=== PATIENT | male | born 2005 | race Caucasian/White ===

== ENCOUNTER 2023-08-16 19:47 | Observation (INO) | payer OTHER, MEDICAID, SELFPAY ==
[2023-08-16] VITALS (11 sets, daily range): BP systolic 136–147; BP diastolic 78–92; PULSE 86–107; RESP 13–25; TEMP 36.4–36.6; O2SAT 97–100
--- NOTE | 2023-08-16 20:15 | ECG_ITS ---
Measurements Intervals [place] Rate: 84 P: 64 ND: 152 QRS: 101 QRSD: 94 T: 55 QT: 364 QTc: 430 Interpretive Statements SINUS RHYTHM WITH SINUS ARRHYTHMIA MARKED RIGHT AXIS DEVIATION NO PREVIOUS ECG AVAILABLE FOR COMPARISON Electronically Signed On 08-17-2023 12:57:28 CDT by Kapil Mejia M.D.
[2023-08-16 20:39] LABS: Basophils Percent Auto 0.5 % (0.2-1.2); Eosinophils Percent Auto 0.3 % (0-4.4); Hematocrit 46.3 % (42.0-52.0); Hemoglobin 16.2 g/dL (14.0-18.0); Immature Granulocyte Absolute 0.03 K/mm3 (0.00-0.031); Immature Granulocyte Percent A 0.4 % (0-0.5); Lymphocytes Absolute Auto 2.18 K/mm3 (0.9-3.2); Lymphocytes Percent Auto 27.3 % (18.3-44.2); Mean Corpuscular Volume 88.7 fl (80-100); Mean Platelet Volume 9.5 fl (7.4-10.4); Monocytes Absolute Auto 0.5 K/mm3 (0.1-0.6); Monocytes Percent Auto 6.4 % (2.6-8.5); Neutrophils Absolute Auto 5.2 K/mm3 (1.3-6.7); Neutrophils Percent Auto 65.1 % (45.5-73.1); Platelet Count Result 179 k/mm3 (150-375); Red Blood Count 5.22 M/mm3 (4.6-6.20); Red Cell Distribution Width 11.6 % (11.5-14.5)
--- NOTE | 2023-08-16 20:49 | ED.GENADULT ---
HPI - General Adult General Chief complaint: Unspecified Stated complaint: I think i have rhabdo Time Seen by Provider: 08/16/23 20:00 History of Present Illness HPI narrative: Patient a 17-year-old gentleman who presents the emergency department with chief complaint of muscle aches. The patient reports that he started exercising more and reports that he just feels not his normal self and feels as though his muscles are patient states he is concerned that he has rhabdo after reading things on the Internet. Related Data Home Medications Medication Instructions Recorded Confirmed No Home Medications 08/16/23 08/16/23 Allergies Allergy/AdvReac Type Severity Reaction Status Date / Time lisdexamfetamine Allergy Other Verified 08/16/23 20:33 [From Elsie] Review of Systems Review of Systems: A 10 system review of systems was completed on the patient and is negative except for what is stated in the HPI. Nursing and ancillary documentation was reviewed. Exam Narrative: GENERAL: Well-appearing, well-nourished, and in no acute distress. HEAD: Normocephalic, atraumatic. EYES: PERRLA and EOMI. ENT: Nares clear, no rhinorrhea or epistaxis. Mucous membranes moist. NECK: Supple. CHEST: Clear to auscultation. No respiratory distress. HEART: Regular rate and rhythm. No murmur heard. Normal peripheral pulses. ABDOMEN: Soft, nontender, nondistended, normal active bowel sounds. EXTREMITIES: Normal range of motion. No edema. SKIN: Warm, dry, no rash. NEURO: No focal deficits. Alert and oriented x3. PSYCH: Normal mood and affect. Course Vital Signs Vital signs: Vital Signs Temperature 36.4 C 08/16/23 19:49 Pulse Rate 107 H 08/16/23 19:49 Respiratory Rate 20 08/16/23 19:49 Blood Pressure 142/92 H 08/16/23 19:49 Pulse Oximetry 100 08/16/23 19:49 Oxygen Delivery Room Air 08/16/23 19:49 Temperature 36.4 C 08/16/23 19:49 Pulse Rate 93 08/16/23 20:32 Respiratory Rate 14 08/16/23 20:32 Blood Pressure 136/92 H 08/16/23 20:32 Pulse Oximetry 99 08/16/23 20:32 Oxygen Delivery Room Air 08/16/23 20:32 Medical Decision Making MDM Narrative Medical decision making narrative: Differential diagnosis includes dehydration, rhabdomyolysis, electrolyte abnormality Laboratory studies were obtained on the patient which showed normal CBC CMP was within normal limits CK was 7901 urinalysis showed no red blood cells and no blood with a specific gravity of 1.002 Patient received IV fluids patient's magnesium was one-point was given a gram of magnesium potassium was 3.5 the patient was given 40 mEq p.o. potassium. Vital Signs Vital Signs: Vital Signs Temperature 36.4 C 08/16/23 19:49 Pulse Rate 107 H 08/16/23 19:49 Respiratory Rate 20 08/16/23 19:49 Blood Pressure 142/92 H 08/16/23 19:49 Pulse Oximetry 100 08/16/23 19:49 Oxygen Delivery Room Air 08/16/23 19:49 Temperature 36.4 C 08/16/23 19:49 Pulse Rate 93 08/16/23 20:32 Respiratory Rate 14 08/16/23 20:32 Blood Pressure 136/92 H 08/16/23 20:32 Pulse Oximetry 99 08/16/23 20:32 Oxygen Delivery Room Air 08/16/23 20:32 Lab Data 08/16/23 20:30 08/16/23 20:30 Labs: Lab Results 08/16/23 Range/Units 20:30 WBC 8.0 (4.5-10.0) K/mm3 RBC 5.22 (4.6-6.20) M/mm3 Hgb 16.2 (14.0-18.0) g/dL Hct 46.3 (42.0-52.0) % MCV 88.7 (80-100) fl MCH 31.0 (26-34) pg MCHC 35.0 (32-36) g/dl RDW 11.6 (11.5-14.5) % Plt Count 179 (150-375) k/mm3 MPV 9.5 (7.4-10.4) fl Immature Gran % (Auto) 0.4 (0-0.5) % Neut % (Auto) 65.1 (45.5-73.1) % Lymph % (Auto) 27.3 (18.3-44.2) % Tillman % (Auto) 6.4 (2.6-8.5) % Eos % (Auto) 0.3 (0-4.4) % Baso % (Auto) 0.5 (0.2-1.2) % Lymph # (Auto) 2.18 (0.9-3.2) K/mm3 Tillman # (Auto) 0.5 (0.1-0.6) K/mm3 Eos # (Auto) 0.0 (0-0.3) K/mm3 Baso # (Auto) 0.0 (0.0-0.1) K/mm3 Abs Immat Gran (
[2023-08-16 20:54] LABS: Alanine Aminotransferase 47 U/L (6-50); Albumin Level 5.1 g/dL (3.7-5.6); Alkaline Phosphatase 56 U/L (58-237); Anion Gap 10 mmol/L (8-16); Aspartate Amino Transferase 101 U/L (17-59); Bilirubin,Total 1.1 mg/dL (0.2-1.3); Blood Urea Nitrogen 14 mg/dL (8-21); Calcium 9.3 mg/dL (8.9-10.7); Carbon Dioxide 27 mmol/L (22-30); Chloride 103 mmol/L (98-107); Estimated CRCL calculation 112 ml/min; Estimated Glomerular Filt Rate > 60; Glucose 96 mg/dL (65-110); Magnesium 1.9 mg/dL (1.6-2.3); Potassium 3.5 mmol/L (3.4-5.0); Sodium 140 mmol/L (134-143)
[2023-08-16 21:02] LABS: Appearance Urine Clear (Clear); Bacteria Urine None Seen /hpf; Bilirubin Urine Negative (Negative); Blood Urine Trace (Negative); Color Urine Yellow (Yellow); Glucose Urine UA Negative (Negative); Ketones Urine Negative (Negative); Leukocyte Esterase Ur Negative LEU/UL (Negative); Need Manual Microscopic Reviewed; Nitrate Urine Negative (Negative); Non Pathogenic Casts 0-2; Protein Urine Negative (Negative); RBC Urine 0-2 /hpf (0-2); Specific Grav Ur 1.002 (1.001-1.035); Squamous Epithelial Cell Urine None seen /hpf (Few); Urobilinogen Urine 0.2 mg/dL (<2.0); WBC Urine 0-5 /hpf; pH Urine 6.5 (5.0-9.0)
[2023-08-16 21:03] LABS: Add Urine Microscopic? YES
[2023-08-16 21:17] LABS: Creatine Kinase 7901 U/L (55-170)
[2023-08-16] MEDS: POTASSIUM CHLORIDE 20 MEQ PACKET (FOR LIQUID) 40 MEQ PO (21:20)
[2023-08-16] MEDS: MAGNESIUM SULF 1 GM/D5W 100 ML 1 GM/100 ML BAG IVPB (21:21)
[2023-08-16] MEDS: SODIUM CHLORIDE 0.9% IV 1,000 ML 999 ML IV CONT ×2 (21:42)
--- NOTE | 2023-08-16 21:51 | PM.IMHP ---
H&P: HPI History of Present Illness Date/Time: 08/16/23 22:00 Chief Complaint: Muscle aches. Narrative: This is a pleasant 17-year-old male with no significant medical history presented to the emergency department via private vehicle for evaluation of muscle aches. The patient provides the following history. He is use to going to the gym almost daily however has not worked out in over a month due to traveling for work. A couple of days ago he went to the gym and lifted weights. Thereafter he was sore in the chest and upper arm, a little more so than usual. He continues to have muscle cramps in these areas and he has noticed swelling in the biceps. He looked up his symptoms on the Internet and was concerned that perhaps he had rhabdomyolysis so he has been pushing the fluids and despite this his symptoms have continued. He denies fevers, chills, sweats, recent illness, exertional chest pain, shortness of breath, nausea, vomiting, dark urine, and decrease in urine. He denies drug use. No history of rhabdomyolysis. Vital signs were stable on arrival to the ED. Labs were significant for a total CK of 7901 and an AST of 101. He is being admitted in this setting for IV fluid rehydration. Review of Systems Review of Systems: Twelve systems were reviewed and are negative except for as per HPI. [facility] Past Medical History Medical History (Updated 08/16/23 @ 22:42 by June Escalante PA-C) No significant past medical history Surgical History Surgical History (Updated 08/16/23 @ 22:38 by June Escalante PA-C) History of tonsillectomy and adenoidectomy Family History Family History (Updated 08/16/23 @ 22:39 by June Escalante PA-C) Other Family history non-contributory Social History Social History (Updated 08/16/23 @ 22:39 by June Escalante PA-C) Social History: Surrogate medical decision maker: Kristi Yung, mother. Code status: Full code. Smoking status: Never smoker Alcohol use details: Occasional alcohol use. Substance use: never Meds Home Medications and Allergies Home Medications Medication Instructions Recorded Confirmed Type No Home Medications 08/16/23 08/16/23 History Allergies Allergy/AdvReac Type Severity Reaction Status Date / Time lisdexamfetamine Allergy Other Verified 08/16/23 22:42 [From Vyvanse] Vital Signs Vital Signs - 24 hr 08/16/23 19:49 08/16/23 20:32 Temperature 97.6 F Pulse Rate 107 H 93 Respiratory Rate 20 14 Blood Pressure 142/92 H 136/92 H Pulse Oximetry 100 99 Oxygen Delivery Room Air Room Air Exam Narrative: General: Non-toxic appearing male sitting up in bed in no distress. Weight: 72.7 kg. BMI: 24.4. HEENT: PERRL, EOMI. Sclera anicteric. Oral mucosa moist. Oropharynx clear. Neck: Supple. Respiratory: Lungs are clear to auscultation bilaterally. Cardiovascular: Regular rate and rhythm with S1-S2. Gastrointestinal: Abdomen is soft, nontender, and nondistended with positive bowel sounds. Skin: Warm and dry. No rash or lesions on limited exam. Extremities: No cyanosis, clubbing, or edema. Radial and pedal pulses intact. Musculoskeletal: No significant swelling in the arms or legs. Neurological: Alert. Cranial nerves 2-12 are grossly intact. No gross focal deficits to casual conversation. Psychiatric: Pleasant and cooperative with normal mood and affect. Judgment and insight intact. H&P: Results Labs Labs: Short CBC 08/16/23 Range/Units 20:30 WBC 8.0 (4.5-10.0) K/mm3 Hgb 16.2 (14.0-18.0) g/dL Hct 46.3 (42.0-52.0) % Plt Count 179 (150-375) k/mm3 BMP 08/16/23 20:30 Sodium 140 Potassium 3.5 Chloride 103 Carbon Dioxide 27 BUN 14 Creatinine 0.90 Glucose 96 Calcium 9.3 Cardiac Enzymes 08/16/23 Range/Units 20:30 Total Creatine Kinase 7901 H (55-170) U/L Liver Function 08/16/23 Range/Units 20:30 Total Bilirubin 1.1 (0.2-1.3) mg/dL AST 101
--- NOTE | 2023-08-16 22:30 | ADMGEN ---
This patient, Kelton Yung, was admitted to Medical Room 251-01. Patient/family oriented to hospital policies and general routines including ID bracelet, bed and alarms, visiting hours, pain management, procedures, bathroom and other care routines, personal items, smoking policy, room service/diet, and visiting hours. Information on how to activate the Rapid Response Team has been discussed. Patient/Family are encouraged to report perceived risks to care and to ask questions if they do not understand what they are told or what they should do.
[2023-08-16] MEDS: SODIUM CHLORIDE 0.9% IV 1,000 ML 150 ML IV CONT (23:20)
[2023-08-17 03:54] VITALS: BP 112/51; PULSE 71; RESP 16; TEMP 36.3; O2SAT 100
[2023-08-17 05:47] LABS: Alanine Aminotransferase 39 U/L (6-50); Albumin Level 3.6 g/dL (3.7-5.6); Alkaline Phosphatase 41 U/L (58-237); Anion Gap 7 mmol/L (8-16); Aspartate Amino Transferase 81 U/L (17-59); Bilirubin,Total 1.1 mg/dL (0.2-1.3); Blood Urea Nitrogen 11 mg/dL (8-21); Calcium 8.1 mg/dL (8.9-10.7); Carbon Dioxide 22 mmol/L (22-30); Chloride 109 mmol/L (98-107); Creatine Kinase 5396 U/L (55-170); Estimated CRCL calculation 125 ml/min; Estimated Glomerular Filt Rate > 60; Glucose 90 mg/dL (65-110); Magnesium 2.3 mg/dL (1.6-2.3); Potassium 3.7 mmol/L (3.4-5.0); Sodium 138 mmol/L (134-143)
[2023-08-17] MEDS: SODIUM CHLORIDE 0.9% IV 1,000 ML 150 ML IV CONT ×3 (05:50→18:46)
--- NOTE | 2023-08-17 08:34 | PM.IMPN ---
Progress Note: A&P Assessment and Plan (1) Rhabdomyolysis: Code(s): M62.82 - Rhabdomyolysis Status: Acute Assessment and Plan: CK level 7900 on admission, approximately 5400 on morning labs this morning. Patient on IV fluids 150 mL/hr. Urinalysis grossly unremarkable. Repeat CK level this afternoon plan to discharge once below 2000. (2) Elevated aspartate aminotransferase level: Code(s): R74.01 - Elevation of levels of liver transaminase levels Status: Acute Assessment and Plan: initial level of AST 101 down trending to 81 with AM labs. Related to rhabdomyolysis. Plan Repeat CK level this afternoon and plan repeat CMP CK level in the a.m. Patient essentially symptom-free. Time Spent With Patient Time with patient: 15 - 25 minutes Subjective Date/time seen: 08/17/23 08:34 Interval history: This is a 17-year-old male patient who is admitted for elevated creatinine kinase level after he sought care in the emergency department for diffuse muscle aches and pains after starting intense exercise routine. Urinalysis unremarkable. CK level improving with IV fluids. Patient denies any other complaints. Review of Systems Review of Systems: All systems reviewed & are unremarkable except as noted in HPI and below Exam Narrative: General: Non-toxic appearing male sitting up in bed in no distress. Weight: 72.7 kg. BMI: 24.4. HEENT: PERRL, EOMI. Sclera anicteric. Oral mucosa moist. Oropharynx clear. Neck: Supple. Respiratory: Lungs are clear to auscultation bilaterally. Cardiovascular: Regular rate and rhythm with S1-S2. Gastrointestinal: Abdomen is soft, nontender, and nondistended with positive bowel sounds. Skin: Warm and dry. No rash or lesions on limited exam. Extremities: No cyanosis, clubbing, or edema. Radial and pedal pulses intact. Musculoskeletal: No significant swelling in the arms or legs. Neurological: Alert. Cranial nerves 2-12 are grossly intact. No gross focal deficits to casual conversation. Psychiatric: Pleasant and cooperative with normal mood and affect. Judgment and insight intact. Objective Data Vital Signs Vital Signs: Vital Signs - 24 hr 08/16/23 19:49 08/16/23 20:32 08/16/23 20:08 Temperature 36.4 C Pulse Rate 107 H 93 103 H Respiratory Rate 20 14 13 Blood Pressure 142/92 H 136/92 H Pulse Oximetry 100 99 Oxygen Delivery Room Air Room Air 08/16/23 20:28 08/16/23 20:30 08/16/23 20:45 Temperature Pulse Rate 93 98 92 Respiratory Rate 19 25 H 16 Blood Pressure Pulse Oximetry Oxygen Delivery 08/16/23 21:11 08/16/23 21:15 08/16/23 21:30 Temperature Pulse Rate 93 89 86 Respiratory Rate 13 16 16 Blood Pressure Pulse Oximetry Oxygen Delivery 08/16/23 21:50 08/16/23 22:59 08/17/23 03:54 Temperature 36.6 C 36.3 C L Pulse Rate 99 93 71 Respiratory Rate 14 18 16 Blood Pressure 147/78 H 112/51 L Pulse Oximetry 97 100 100 Oxygen Delivery Intake/Output Intake/Output: Intake & Output 08/14/23 08/15/23 08/16/23 08/17/23 23:59 23:59 23:59 23:59 Intake Total 2100 1200 Balance 2100 1200 Meds/Results Medications: Active Medications Generic Name Dose Route Start Last Admin Trade Name Richardsonq PRN Reason Stop Dose Admin Acetaminophen 650 mg 08/16/23 21:57 Acetaminophen 325 Mg Tablet PO Q6H PRN Mild Pain (1-3) or Fever Sodium Chloride 1,000 mls @ 150 mls/hr 08/16/23 21:50 08/17/23 05:50 Normal Saline Iv IV CONT 150 mls/hr .[id number] MARIA Administration Labs Labs: Laboratory Results - last 24 hr 08/16/23 08/17/23 20:30 04:47 WBC 8.0 RBC 5.22 Hgb 16.2 Hct 46.3 MCV 88.7 MCH 31.0 MCHC 35.0 RDW 11.6 Plt Count 179 MPV 9.5 Immature Gran % (Auto) 0.4 Neut % (Auto) 65.1 Lymph % (Auto) 27.3 Mayes % (Auto) 6.4 Eos % (Auto) 0.3 Baso % (Auto) 0.5 Lymph # (Auto) 2.18 Mayes # (Auto) 0.5 Eos # (Auto) 0.0
[2023-08-17 13:03] VITALS: BP 133/72; PULSE 83; RESP 16; TEMP 36.9; O2SAT 100
[2023-08-17 18:58] LABS: Creatine Kinase 8139 U/L (55-170)
[2023-08-17 20:59] VITALS: BP 139/73; PULSE 84; RESP 18; TEMP 36.8; O2SAT 100
[2023-08-18] MEDS: SODIUM CHLORIDE 0.9% IV 1,000 ML 150 ML IV CONT (01:31)
[2023-08-18 05:27] LABS: Hematocrit 46.5 % (42.0-52.0); Hemoglobin 15.4 g/dL (14.0-18.0); Mean Corpuscular HGB Conc 33.1 g/dl (32-36); Mean Corpuscular Hemoglobin 30.3 pg (26-34); Mean Corpuscular Volume 91.5 fl (80-100); Mean Platelet Volume 9.4 fl (7.4-10.4); Platelet Count Result 176 k/mm3 (150-375); Red Blood Count 5.08 M/mm3 (4.6-6.20); Red Cell Distribution Width 11.6 % (11.5-14.5); White Blood Count 6.9 K/mm3 (4.5-10.0)
[2023-08-18 05:31] VITALS: BP 108/49; PULSE 72; RESP 18; TEMP 36.3; O2SAT 99
[2023-08-18 05:39] LABS: Alanine Aminotransferase 59 U/L (6-50); Albumin Level 4.6 g/dL (3.7-5.6); Alkaline Phosphatase 50 U/L (58-237); Anion Gap 8 mmol/L (8-16); Aspartate Amino Transferase 107 U/L (17-59); Bilirubin,Total 1.4 mg/dL (0.2-1.3); Blood Urea Nitrogen 11 mg/dL (8-21); Carbon Dioxide 27 mmol/L (22-30); Chloride 105 mmol/L (98-107); Estimated CRCL calculation 112 ml/min; Estimated Glomerular Filt Rate > 60; Glucose 88 mg/dL (65-110); Potassium 3.8 mmol/L (3.4-5.0); Sodium 140 mmol/L (134-143)
[2023-08-18 06:02] LABS: Creatine Kinase 7154 U/L (55-170)
--- NOTE | 2023-08-18 07:47 | ECG_ITS ---
Measurements Intervals [place] Rate: 62 P: 29 VT: 137 QRS: 104 QRSD: 98 T: 76 QT: 397 QTc: 406 Interpretive Statements SINUS RHYTHM WITH MARKED SINUS ARRHYTHMIA RIGHT AXIS DEVIATION BORDERLINE ECG COMPARED TO ECG 08/16/2023 20:05:41 NO SIGNIFICANT CHANGES Electronically Signed On 08-18-2023 16:57:37 CDT by Frederic Feliciano M.D.
[2023-08-18] MEDS: LACTATED RINGERS 1,000 ML 250 ML IV CONT ×3 (07:53→21:46)
[2023-08-18 07:55] LABS: Magnesium 2.2 mg/dL (1.6-2.3); Phosphorus 4.9 mg/dL (2.5-4.5)
[2023-08-18 08:19] LABS: Troponin I < 0.012 ng/mL (0.000-0.034)
[2023-08-18 09:32] LABS: Appearance Urine Clear (Clear); Bilirubin Urine Negative (Negative); Blood Urine Negative (Negative); Color Urine Yellow (Yellow); Glucose Urine UA Negative (Negative); Ketones Urine Negative (Negative); Leukocyte Esterase Ur Negative LEU/UL (NEGATIVE); Nitrate Urine Negative (Negative); Protein Urine Negative (Negative); Specific Grav Ur 1.007 (1.001-1.035); Urobilinogen Urine 0.2 mg/dL (<2.0); pH Urine 6.5 (5.0-9.0)
[2023-08-18 10:01] LABS: Add Urine Microscopic? NO
--- NOTE | 2023-08-18 12:41 | PM.IMPN ---
Progress Note: A&P Assessment and Plan (1) Rhabdomyolysis: Code(s): M62.82 - Rhabdomyolysis Status: Acute Assessment and Plan: CK level 7900 on admission, approximately 5400 on morning labs this morning. Patient on IV fluids 150 mL/hr. Urinalysis grossly unremarkable. Repeat CK level this afternoon plan to discharge once below 2000. 08/18: Repeated urine there is no myoglobin no proteinuria, renal function on labs is grossly normal with no significant electrolyte abnormalities. Increased IV fluids to 250 mL/hr. Will now discharge when CK level is between 8429-3983. Repeat labs twice daily until he can be discharged. (2) Elevated aspartate aminotransferase level: Code(s): R74.01 - Elevation of levels of liver transaminase levels Status: Acute Assessment and Plan: initial level of AST 101 down trending to 81 with AM labs. Related to rhabdomyolysis. 08/18: proportional rise with rising CK level overnight, overall unconcerning for long-term sequela Plan Repeat CK level this afternoon and plan repeat CMP CK level in the a.m. Patient essentially symptom-free. Discharge when CK 9896-5280 Time Spent With Patient Time: Time inclusive of 20 minute phone conversation with patient's father Time with patient: 25 - 35 minutes Subjective Date/time seen: 08/18/23 12:41 Interval history: 08/17: This is a 17-year-old male patient who is admitted for elevated creatinine kinase level after he sought care in the emergency department for diffuse muscle aches and pains after starting intense exercise routine. Urinalysis unremarkable. CK level improving with IV fluids. Patient denies any other complaints. 08/18: Patient anxious regarding the fact that his labs fluctuated and CK level ashley despite IV fluids. EKG sinus arrhythmia with no concerning features, troponin negative. IV fluids increased to 250 mL/hr. Recheck urinalysis no myoglobin or occult blood and no protein urea. with patient permission I spoke to his father who was calling the floor every hour for updates. I explained that the patient is very stable and would be discharged once CK level lower stool more reasonable level between 9617-4534. Review of Systems Review of Systems: All systems reviewed & are unremarkable except as noted in HPI and below Exam Narrative: General: Non-toxic appearing male sitting up in bed in no distress. Weight: 72.7 kg. BMI: 24.4. HEENT: PERRL, EOMI. Sclera anicteric. Oral mucosa moist. Oropharynx clear. Neck: Supple. Respiratory: Lungs are clear to auscultation bilaterally. Cardiovascular: Regular rate and irregular rhythm with S1-S2. Gastrointestinal: Abdomen is soft, nontender, and nondistended with positive bowel sounds. Skin: Warm and dry. No rash or lesions on limited exam. Extremities: No cyanosis, clubbing, or edema. Radial and pedal pulses intact. Musculoskeletal: No significant swelling in the arms or legs. Neurological: Alert. Cranial nerves 2-12 are grossly intact. No gross focal deficits to casual conversation. Psychiatric: Pleasant and cooperative with normal mood and affect. Judgment and insight intact. Objective Data Vital Signs Vital Signs: Vital Signs - 24 hr 08/17/23 13:03 08/17/23 20:59 08/17/23 20:00 Temperature 36.9 C 36.8 C Pulse Rate 83 84 Respiratory Rate 16 18 Blood Pressure 133/72 139/73 Pulse Oximetry 100 100 Oxygen Delivery Room Air 08/18/23 05:31 08/18/23 08:00 Temperature 36.3 C L Pulse Rate 72 Respiratory Rate 18 Blood Pressure 108/49 L Pulse Oximetry 99 Oxygen Delivery Room Air Intake/Output Intake/Output: Intake & Output 08/15/23 08/16/23 08/17/23 08/18/23 23:59 23:59 23:59 23:59 Intake Total 2100 4230 1000 Output Total 700 700 Balance 2100 3530 300 Meds/Results Medications: Active Medications Generic Name Dose Route Start Last Admin Trade Name Freq PRN Reason Stop Dose Admin Acetaminophen
[2023-08-18 14:00] VITALS: BP 137/68; PULSE 68; RESP 14; TEMP 36.8; O2SAT 98
[2023-08-18 15:50] LABS: Alanine Aminotransferase 53 U/L (6-50); Albumin Level 4.2 g/dL (3.7-5.6); Alkaline Phosphatase 41 U/L (58-237); Anion Gap 5 mmol/L (8-16); Aspartate Amino Transferase 101 U/L (17-59); Bilirubin,Total 1.4 mg/dL (0.2-1.3); Blood Urea Nitrogen 9 mg/dL (8-21); Carbon Dioxide 28 mmol/L (22-30); Chloride 104 mmol/L (98-107); Estimated CRCL calculation 112 ml/min; Estimated Glomerular Filt Rate > 60; Glucose 106 mg/dL (65-110); Potassium 3.8 mmol/L (3.4-5.0); Sodium 137 mmol/L (134-143)
[2023-08-18 16:10] LABS: Creatine Kinase 7171 U/L (55-170)
[2023-08-18 22:00] VITALS: BP 120/74; PULSE 72; RESP 16; TEMP 36.8; O2SAT 99
[2023-08-19] MEDS: LACTATED RINGERS 1,000 ML 250 ML IV CONT ×3 (01:51→10:30)
[2023-08-19 05:01] VITALS: BP 115/55; PULSE 63; RESP 16; TEMP 36.3; O2SAT 100
[2023-08-19 05:56] LABS: Hematocrit 40.6 % (42.0-52.0); Mean Corpuscular HGB Conc 34.5 g/dl (32-36); Mean Platelet Volume 9.3 fl (7.4-10.4); Platelet Count Result 158 k/mm3 (150-375); Red Blood Count 4.51 M/mm3 (4.6-6.20); Red Cell Distribution Width 11.4 % (11.5-14.5); White Blood Count 5.3 K/mm3 (4.5-10.0)
[2023-08-19 06:13] LABS: Alanine Aminotransferase 50 U/L (6-50); Albumin Level 3.8 g/dL (3.7-5.6); Alkaline Phosphatase 42 U/L (58-237); Anion Gap 4 mmol/L (8-16); Aspartate Amino Transferase 82 U/L (17-59); Bilirubin,Total 1.4 mg/dL (0.2-1.3); Blood Urea Nitrogen 8 mg/dL (8-21); Calcium 8.7 mg/dL (8.9-10.7); Carbon Dioxide 30 mmol/L (22-30); Chloride 104 mmol/L (98-107); Estimated CRCL calculation 112 ml/min; Estimated Glomerular Filt Rate > 60; Glucose 86 mg/dL (65-110); Potassium 3.8 mmol/L (3.4-5.0); Sodium 138 mmol/L (134-143)
[2023-08-19 06:59] LABS: Creatine Kinase 4475 U/L (55-170)
--- NOTE | 2023-08-19 13:56 | PM.DS ---
DS: Admitting Diagnosis Discharge Date 08/19/2023 Admitting Diagnosis Rhabdomyolysis DS: Discharge Diagnosis Discharge Diagnosis (1) Rhabdomyolysis: Qualifiers: Rhabdomyolysis type: non-traumatic Qualified Code(s): M62.82 - Rhabdomyolysis Code(s): M62.82 - Rhabdomyolysis Status: Acute (2) Elevated aspartate aminotransferase level: Code(s): R74.01 - Elevation of levels of liver transaminase levels Status: Acute DS: Summary Hospital Course Reason for hospitalization: Patient was admitted for rhabdomyolysis with muscle pain and elevated CK levels as well as trace myoglobinuria. Hospital Course: This is a previously healthy 17-year-old male patient admitted to the hospital due to elevated CK levels from intense exercise. Patient had muscle pain and elevated CK levels with trace myoglobinuria. he required IV fluid hydration 4-0 total of 3 days to get CK level to a safe and consistent decreasing pattern. Symptoms are completely resolved no further muscle pain or weakness. Patient instructed to follow-up with primary care. He is from out of town and will be going home. His parents have been calling frequently because they are intensely concerned about his health. Status at Discharge Cognitive/behavioral status at discharge: awake, alert oriented and pleasant Functional status at discharge: independent ambulation Overall status at discharge: patient is back to baseline Time Spent with Patient Time attestation: Total time spent providing and/or coordinating discharge services: 25 minutes Time spent: Less than 30 minutes Exam Narrative: General: Non-toxic appearing male sitting up in bed in no distress. Weight: 72.7 kg. BMI: 24.4. HEENT: PERRL, EOMI. Sclera anicteric. Oral mucosa moist. Oropharynx clear. Neck: Supple. Respiratory: Lungs are clear to auscultation bilaterally. Cardiovascular: Regular rate and irregular rhythm with S1-S2. Gastrointestinal: Abdomen is soft, nontender, and nondistended with positive bowel sounds. Skin: Warm and dry. No rash or lesions on limited exam. Extremities: No cyanosis, clubbing, or edema. Radial and pedal pulses intact. Musculoskeletal: No significant swelling in the arms or legs. Neurological: Alert. Cranial nerves 2-12 are grossly intact. No gross focal deficits to casual conversation. Psychiatric: Pleasant and cooperative with normal mood and affect. Judgment and insight intact. DS: Data Data Completed and Pending Labs on day of discharge: Labs from last 24 hours 10/17/23 10/16/23 05:22 15:14 WBC 5.3 RBC 4.51 L Hgb 14.0 Hct 40.6 L MCV 90.0 MCH 31.0 MCHC 34.5 RDW 11.4 L Plt Count 158 MPV 9.3 Sodium 138 137 Potassium 3.8 3.8 Chloride 104 104 Carbon Dioxide 30 28 Anion Gap 4 L 5 L BUN 8 9 Creatinine 0.90 0.90 Estim Creat Clear Calc 112 112 Estimated GFR > 60 > 60 Glucose 86 106 Calcium 8.7 L 9.0 Total Bilirubin 1.4 H 1.4 H AST 82 H 101 H ALT 50 53 H Alkaline Phosphatase 42 L 41 L Total Creatine Kinase 4475 H 7171 H Total Protein 6.0 L 7.0 Albumin 3.8 4.2 Discharge Plan Discharge Attending physician on discharge: Libby Russ Discharging Clinician: Chandler Chowdhury Patient Disposition: Home, Self-Care Activity: as tolerated Diet: regular Discharge Instructions: Follow up with primary doctor in 1-2 weeks and discuss options about safe levels of exercise/weight lifting Continue drinking plenty of fluids to stay hydrated If any similar symptoms recur return to ER Patient Instructions: Rhabdomyolysis (DC), Pain Management (DC) Stand Alone Forms: General Discharge Information, Work/School Release IP Follow-up/Referrals: PHYSICIAN NOT ON STAFF,NONSTAFF [Primary Care Provider] - (Call your primary care doctor for follow up visit) Discharge Medications: Continued No Home Medications Date of admission:
[2023-08-19 14:00] VITALS: BP 127/66; PULSE 74; RESP 17; TEMP 36.8; O2SAT 100
[2023-08-19 15:55] LABS: Creatine Kinase 3109 U/L (55-170)
== END 2023-08-19 17:00 | disposition home or self-care (01) ==
LOC: ANHED 21:48 → ANH2MED 22:34
PROVIDERS: Nurse Practitioner; Physician Assistant; Admitting Provider Internal Medicine; Emergency Provider Emergency Medicine; Visit Provider Hospitalist
DX: M62.82 Rhabdomyolysis (principal); R74.01 Elevation of levels of liver transaminase levels; I45.19 Other right bundle-branch block
CPT/HCPCS: 36415; 80048; 80053; 80076; 81001; 81003; 82550; 83735; 84100; 84484; 85025; 85027; 93005; 96360; 96361; 96365; 99285; A9270; G0378; J3475; J7030; J7120